=== PATIENT | female | born 1985 | race Caucasian/White ===

== ENCOUNTER 2018-02-24 22:11 | Emergency (ER) | payer SELFPAY ==
[~2018-02-24] VITALS: Ht 167.6 cm; Wt 62.0 kg
[2018-02-24 22:26] VITALS: BP 122/79; PULSE 100; RESP 20; O2SAT 98
--- NOTE | 2018-02-24 22:50 | PD ---
HPI Chief Complaint: Alcohol/Drug Intoxication Time Seen by Provider: 22:21 Travel History International Travel<30 days: No Contact w/Intl Traveler<30days: No Traveled to known affect area: No History of Present Illness HPI The patient was seen and examined in the presence of the nurse. This patient is brought in by police under [place] act. Patient was drinking alcohol excessively. She was uncooperative and belligerent and please brought her in. She denies any specific physical complaint. She admits to drinking. Denies intentional overdose or any drug use. Symptom severity is mild. No alleviating factors. No exacerbating factors. Duration one day PFSH Past Medical History LMP: 02/24/2018 Social History Alcohol Use: Yes Tobacco Use: No Substance Use: No Review of Systems General / Constitutional: No: Fever Eyes: No: Visual changes HENT: No: Headaches Cardiovascular: No: Chest Pain or Discomfort Respiratory: No: Shortness of Breath Gastrointestinal: No: Abdominal Pain Genitourinary: No: Dysuria Musculoskeletal: No: Pain Skin: No Rash Neurologic: No: Weakness Psychiatric: Positive: Substance Abuse, No: Depression Endocrine: No: Polydipsia Hematologic/Lymphatic: No: Easy Bruising Physical Exam Narrative GENERAL: Well-nourished, well-developed patient in no apparent distress. SKIN: Focused skin assessment reveals no rash and nodules. Skin is Warm and dry. HEAD: Atraumatic. Normocephalic. EYES: Pupils equal and round. No scleral icterus. No injection or drainage. ENT: No nasal bleeding or discharge. Mucous membranes pink and moist. NECK: Trachea midline. No JVD. CARDIOVASCULAR: Regular rate and rhythm. No murmur appreciated. RESPIRATORY: No accessory muscle use. Clear to auscultation. Breath sounds equal bilaterally. GASTROINTESTINAL: Abdomen soft, non-tender, nondistended. Hepatic and splenic margins not palpable. MUSCULOSKELETAL: No obvious deformities. No clubbing. No cyanosis. No edema. NEUROLOGICAL: Awake and alert. No obvious cranial nerve deficits. Motor grossly within normal limits. Normal speech. PSYCHIATRIC: Argumentative mood and affect; insight and judgment reduced . Data Data Last Documented VS Vital Signs Date Time Temp Pulse Resp B/P (MAP) Pulse Ox O2 Delivery O2 Flow Rate FiO2 02/24/18 22:26 100 20 122/79 (93) 98 MDM Medical Decision Making Medical Screen Exam Complete: Yes Emergency Medical Condition: Yes Medical Record Reviewed: Yes Differential Diagnosis Alcohol intoxication drug use, malingering Narrative Course I have reviewed the patient's electronic medical record. This patient drank too much alcohol and got belligerent and the police were called and brought them in. We are going to keep an eye on them for a while and let them sober up. When the nursing staff judges them to be appropriately sober and will make sure they can walk and talk appropriately she will be stable for discharge. I do not see indication for emergent testing. She has no physical complaints and feels okay. At this time she is cooperative. She has no interest in alcohol treatment. Diagnosis Primary Impression: Alcohol intoxication Qualified Codes: F10.929 - Alcohol use, unspecified with intoxication, unspecified Additional Instructions: The patient was advised to follow up with their physician and return if they worsen. Med/Other Pt SpecificInfo: Other Disposition: 01 DISCHARGE HOME Condition: Stable Joaquin Morales MD Feb 24, 2018 22:50
[2018-02-24] MEDS ORDERED: LAMO100 PO (22:59)
[2018-02-24] MEDS ORDERED: LEXA20TA PO (22:59)
[2018-02-25 03:36] VITALS: BP 109/75; PULSE 118; RESP 20; TEMP 97.9; O2SAT 98
[2018-02-25 07:04] VITALS: BP 105/63
== END 2018-02-25 07:06 | disposition home or self-care (01) ==
LOC: PHED 22:11
DX: F10.129 Alcohol abuse with intoxication, unspecified (principal)
CPT/HCPCS: 99281